=== PATIENT | female | born 1995 | race African-American/Black ===

== ENCOUNTER 2021-07-24 13:15 | Inpatient (IN) ==
[2021-07-24] MEDS ORDERED: BUTORPHANOL 2 MG/ML VIAL IV PRN (13:31)
[2021-07-24] MEDS ORDERED: ONDANSETRON 4 MG/2 ML VIAL IV PRN (13:31)
[2021-07-24] MEDS ORDERED: MEPERIDINE 50 MG/1 ML VIAL IM PRN (13:31)
[2021-07-24 14:00] LABS: Basophils % 0.3 % (0.0-0.8); Eosinophils % 0.3 % (0.00-10.9); Hemoglobin 12.4 GM/DL (12.0-16.0); Immature Granulocytes Absolute 0.15 #; Lymphocytes % 20.9 % (21.3-54.2); Mean Corpuscular HGB Conc 34.4 GM/DL (32-36); Mean Corpuscular Volume 92.1 FL (87-102); Mean Platelet Volume 11.6 FL (9.6-12.0); Monocytes % 6.7 % (1.7-12.7); Neutrophils % 70.8 % (38.7-73.9); Platelet Count 192 T/CUMM (130-400); Red Blood Count 3.91 MC/CUMM (3.8-5.5); Red Cell Distribution Width 12.9 % (9.3-17.3); White Blood Count 14.6 T/CUMM (4-12)
[2021-07-24 14:21] LABS: Albumin 2.9 G/DL (3.4-5.0); Bilirubin,Total 0.6 MG/DL (0.20-1.00); Calcium 9.1 MG/DL (8.5-10.1); Osmolality,Calculated 265.2 MOS/KG (273-304); Total Protein 6.9 G/DL (6.4-8.2); Uric Acid 4.9 MG/DL (2.6-6.0)
[2021-07-24 14:24] LABS: INR 0.9; Partial Thromboplastin Time 26.2 SECS (23.8-32.1)
[2021-07-24 15:44] LABS: HIV Antigen/Antibody Result Nonreactive (Nonreactive); Hepatitis B Surface Ag Quant < 0.10 Index; Hepatitis B Surface Ag Result Non-Reactive (NonReactive); Rubella Antibody IgG Result Reactive (NonReactive)
[2021-07-24] MEDS: LABETALOL 100 MG TABLET PO SCH (21:42)
[2021-07-25] MEDS: OXYTOCIN/LR 20 UNIT/1,000 ML BAG IV PRN (04:49)
[2021-07-25] MEDS: LACTATED RINGERS 1,000 ML IV PRN ×2 (04:50→09:42)
[2021-07-25] MEDS ORDERED: NALOXONE 0.4 MG/ML VIAL IV PRN (09:11)
[2021-07-25] MEDS ORDERED: hydrOXYzine HCL 25 MG/1 ML VIAL IM PRN (09:11)
[2021-07-25] MEDS ORDERED: FAMOTIDINE 20 MG/2 ML VIAL IV ONE (09:11)
[2021-07-25] MEDS ORDERED: diphenhydrAMINE 50 MG/1 ML VIAL IV PRN (09:11)
[2021-07-25] MEDS ORDERED: ePHEDrine 50 MG/ML VIAL IV PRN (09:11)
[2021-07-25] MEDS ORDERED: CITRIC ACID/SODIUM CITRATE 30 ML UDCUP PO ONE (09:11)
[2021-07-25] MEDS ORDERED: PROMETHAZINE 25 MG/1 ML VIAL IM PRN (09:11)
[2021-07-25] MEDS: fentaNYL 2 MCG/ROPIV 0.2% EPID 100 ML EPIDURAL SCH (10:00)
[2021-07-25 12:02] LABS: Bacteria,Urine Occasional /HPF (Few); Bilirubin,Urine Negative (Negative); Blood, Urine Negative (Negative); Glucose,Urine (UA) Negative (Negative); Ketones,Urine Negative (Negative); Mucus,Urine Occasional /LPF (Occasional); Nitrite,Urine Negative (Negative); Protein,Urine Negative; RBC,Urine 1 /HPF (0-4); Squamous Epithelial Cell,Urine Occasional /HPF (0-10); Urine Appearance CLEAR (Clear); Urine Color Yellow (Yellow); Urine Specific Gravity 1.024 (1.001-1.035)
[2021-07-25] MEDS: LABETALOL 100 MG TABLET PO SCH (15:39)
[2021-07-25] MEDS: ceFAZolin 2,000 MG/50 ML DUPLEX IV SCH (20:16)
[2021-07-26] MEDS ORDERED: ACETAMINOPHEN 500 MG TABLET PO ONE (01:24)
[2021-07-26] MEDS: ceFAZolin 2,000 MG/50 ML DUPLEX IV SCH ×2 (02:03→13:35)
[2021-07-26] MEDS: fentaNYL 2 MCG/ROPIV 0.2% EPID 100 ML EPIDURAL SCH (02:06)
[2021-07-26] MEDS: LABETALOL 100 MG TABLET PO SCH ×2 (02:16→13:35)
[2021-07-26] MEDS ORDERED: miSOPROStoL 200 MCG TABLET ONE (06:58)
[2021-07-26] MEDS ORDERED: OXYTOCIN/LR 20 UNIT/1,000 ML BAG IV ONE ×2 (06:59→13:34)
[2021-07-26] MEDS ORDERED: CARBOPROST TROMETHAMINE 250 MCG/ML AMP IM ONE (06:59)
[2021-07-26] MEDS ORDERED: METHYLERGONOVINE 0.2 MG/1 ML AMP ONE (06:59)
[2021-07-26] MEDS: OXYTOCIN/LR 20 UNIT/1,000 ML BAG IV PRN (07:24)
[2021-07-26 08:42] LABS: Cord Venous Blood HCO3 23.1 MMOL/L; Cord Venous Blood PCO2 46.7 MMHG; Cord Venous Blood PO2 37.5
[2021-07-26] MEDS ORDERED: DIPH/TET/ACEL PERT BOOSTER VACCINE 0.5 ML VIAL IM ONE (13:34)
[2021-07-26] MEDS ORDERED: ACETAMINOPHEN 325 MG TABLET PO PRN (13:34)
[2021-07-26] MEDS ORDERED: LANOLIN 50% CREAM 0.3 OZ TUBE TOP PRN (13:34)
[2021-07-26] MEDS ORDERED: WITCH HAZEL PADS 100/JAR TOP PRN (13:34)
[2021-07-26] MEDS ORDERED: BENZOCAINE 20%/MENTHOL 0.5% SPRAY 56 GM CAN TOP PRN (13:34)
[2021-07-26] MEDS ORDERED: MEASLES/MUMPS/RUBELLA VACCINE 0.5 ML VIAL SUBCUT ONE (13:34)
[2021-07-26] MEDS ORDERED: HYDROCORTISONE 2.5% RECTAL CREAM 30 GM TUBE TOP PRN (13:34)
[2021-07-26] MEDS ORDERED: RHO(D) IMMUNE GLOBULIN 300 MCG SYRINGE IM ONE (13:34)
[2021-07-26] MEDS ORDERED: BISACODYL 10 MG SUPP RECTAL PRN (13:34)
[2021-07-26] MEDS ORDERED: oxyCODONE/ACETAMINOPHEN 5-325 MG TABLET PO PRN (13:34)
[2021-07-26] MEDS: DOCUSATE SODIUM 100 MG CAPSULE PO SCH (21:41)
[2021-07-27] MEDS: DOCUSATE SODIUM 100 MG CAPSULE PO SCH ×2 (09:20→21:44)
[2021-07-27 09:43] LABS: Basophils # 0.1 # (0.0-0.1); Basophils % 0.2 % (0.2-1.0); Eosinophils # 0.1 # (0.0-0.70); Eosinophils % 0.7 % (0.0-10.0); Hematocrit 31.7 VOL% (37.0-47.0); Hemoglobin 10.9 GM/DL (12.0-16.0); Mean Corpuscular HGB Conc 34.4 GM/DL (32-36); Mean Corpuscular Volume 92.7 FL (81-99); Mean Platelet Volume 12.5 FL (7.4-10.4); Monocytes % 5.4 % (5.5-11.7); Platelet Count 146 T/CUMM (130-400); Red Blood Count 3.42 MC/CUMM (4.20-5.40); Red Cell Distribution Width 12.7 % (11.5-15.5); White Blood Count 20.1 T/CUMM (4.8-10.8)
[2021-07-27] MEDS: IBUPROFEN 800 MG TABLET PO PRN ×2 (11:51→18:58)
[2021-07-27] MEDS: oxyCODONE/ACETAMINOPHEN 5-325 MG TABLET PO PRN ×2 (11:55→19:00)
[2021-07-28 07:19] VITALS: BP 116/75
[2021-07-28] MEDS: DOCUSATE SODIUM 100 MG CAPSULE PO SCH (08:57)
== END 2021-07-28 15:30 | disposition home or self-care (01) | DRG 560 ==
LOC: N.LD 13:15 → N.OB 07-26 13:32
PROVIDERS: ADMIT Obstetrics & Gynecology; ATTEND Obstetrics & Gynecology